=== PATIENT | female | born 1990 | race Caucasian/White ===

== ENCOUNTER → 2017-02-17 | Outpatient (CLI) | payer BC, OTHER ==
[2016-03-21 09:51] VITALS: BP 135/61
[~2017-02-17] MED LIST: HYDR200T PO; LEVO50TA PO
--- NOTE | 2017-02-17 17:00 | RAD ---
APPROVED REPORT Left Lower Extremity Venous Study for S/P ABLATION X 2 DAYS Patient Location: OUT-PATIENT Indications Church scale images of the left common femoral, superficial femoral and popliteal veins does not reveal any evidence of thrombus. The vessels appear to be compressible. The below-knee vessels demonstrate spontaneous flow. The left great saphenous vein does not have any flow and is noncompressible consist ent with recent ablation. Risk Factors Post OP Past History Prior Lower Extremity Venous Duplex Vein Imaging (Left) CFV (L): Compressible SFJ (L): Compressible FEM (L): Compressible POP (L): Compressible DFV (L): Compressible PTV (L): Compressible GSV (L): Absent Flow Peroneals (L): Compressible Doppler Evaluation (Right) CFV (R): Spontaneous, Doppler Evaluation (Left) CFV (L):Spontaneous POP (L):Spontaneous Critical Notification Critical Value: No <Conclusion> 1. Successful left great saphenous vein ablation without evidence of DVT.
== END | disposition home or self-care (01) ==
LOC: US 09:40
PROVIDERS: ATTEND Internal Medicine Cardiovascular Disease
DX: I87.2 Venous insufficiency (chronic) (peripheral) (principal)
CPT/HCPCS: 93971

== ENCOUNTER → 2017-05-26 | Outpatient (CLI) | payer BC, OTHER ==
[2016-03-21 09:51] VITALS: BP 135/61
--- NOTE | 2017-05-26 13:08 | RAD ---
Bilateral lower extremity venous ultrasound, 05/26/2017: History: Chronic venous insufficiency Duplex evaluation of the deep veins in the lower extremities was performed including grayscale, color-flow and spectral Doppler analysis. The femoral and popliteal veins demonstrate normal compressibility and normal responses to distal augmentation maneuvers. Color imaging of those vessels shows no evidence of intraluminal clot. The visualized deep veins in both calves are patent. IMPRESSION: There is no sonographic evidence of deep vein thrombosis in either lower extremity.
== END | disposition home or self-care (01) ==
LOC: US 09:20
PROVIDERS: ATTEND Internal Medicine Cardiovascular Disease
DX: I87.2 Venous insufficiency (chronic) (peripheral) (principal)
CPT/HCPCS: 93970

== ENCOUNTER → 2017-07-13 | Outpatient (CLI) | payer BC, OTHER ==
[2016-03-21 09:51] VITALS: BP 135/61
[~2017-07-13] MED LIST changes: -HYDR200T PO; +HYDR200T71 PO
--- NOTE | 2017-07-13 09:59 | RAD ---
Renal ultrasound 07/13/2017 Indication: Hematuria Comparison study: None Discussion: Ultrasound evaluation of the kidneys is performed. Static images are submitted to PACS. Right kidney measures 12.7 cm in length. Left kidney measures 12.2 cm in length. No focal renal lesions are identified. Or perirenal no hydronephrosis or nephrolithiasis is identified. Bladder is grossly unremarkable in appearance. No significant post void residual was seen. Impression: Normal sonographic appearance of the kidneys
== END | disposition home or self-care (01) ==
LOC: US 08:36
PROVIDERS: ATTEND Internal Medicine Nephrology
DX: R31.21 Asymptomatic microscopic hematuria (principal)
CPT/HCPCS: 76770